=== PATIENT | female | born 1945 | race Caucasian/White ===

== ENCOUNTER 2019-07-22 15:19 | IRF | payer MEDICARE, BC, SELFPAY ==
[2019-07-22 15:47] VITALS: BP 113/53; PULSE 84; RESP 20; TEMP 36.2; O2SAT 100; BMI 23.6
[2019-07-22 17:26] LABS: Glucose Point of Care 120 (65-105)
[2019-07-22] MEDS: CYCLOBENZAPRINE HCL 10 MG TABLET PO (18:00)
--- NOTE | 2019-07-22 18:45 | PC.NURSE ---
Patient is alert and oriented to person only. unable to answer admission questions.
[2019-07-22] MEDS: HEPARIN SODIUM 5,000 UNITS/ML VIAL 5000 UNITS SUB-Q (21:48)
[2019-07-22] MEDS: ATORVASTATIN 40 MG TABLET 80 MG PO (21:48)
[2019-07-22 22:00] VITALS: BP 141/65; PULSE 56; RESP 18; TEMP 36.2; O2SAT 96
[2019-07-23] MEDS: ACETAMINOPHEN 500 MG TABLET PO (03:44)
[2019-07-23 05:10] LABS: Basophils Absolute Auto 0.1 K/mm3 (0.0-0.1); Basophils Percent Auto 0.7 % (0.2-1.2); Eosinophils Absolute Auto 0.1 K/mm3 (0-0.3); Eosinophils Percent Auto 1.3 % (0-4.4); Hematocrit 35.8 % (37.0-47.0); Hemoglobin 11.4 g/dL (12.0-15.0); Immature Granulocyte Absolute 0.06 K/mm3 (0.00-0.031); Immature Granulocyte Percent A 0.7 % (0-0.5); Lymphocytes Absolute Auto 2.86 K/mm3 (0.9-3.2); Lymphocytes Percent Auto 34.2 % (18.3-44.2); Mean Corpuscular HGB Conc 31.8 g/dl (32-36); Mean Corpuscular Hemoglobin 32.5 pg (26-34); Mean Platelet Volume 9.6 fl (7.4-10.4); Monocytes Absolute Auto 0.6 K/mm3 (0.1-0.6); Monocytes Percent Auto 6.6 % (2.6-8.5); Neutrophils Absolute Auto 4.7 K/mm3 (1.3-6.7); Neutrophils Percent Auto 56.5 % (45.5-73.1); Platelet Count Result 379 k/mm3 (150-375); Red Blood Count 3.51 M/mm3 (4.2-5.4); Red Cell Distribution Width 13.7 % (11.5-14.5); White Blood Count 8.4 K/mm3 (4.5-10.0)
[2019-07-23 05:28] LABS: Blood Urea Nitrogen 18 mg/dL (7-17); Carbon Dioxide 33 mmol/L (22-30); Chloride 103 mmol/L (98-107); Cholesterol 124 mg/dL (0-200); Estimated CRCL calculation 57 ml/min; Estimated Glomerular Filt Rate > 60; Glucose 88 mg/dL (65-105); HDL Direct 38 mg/dL; Potassium 3.8 mmol/L (3.4-5.0); Sodium 140 mmol/L (137-145); Triglycerides 94 mg/dL (<150)
[2019-07-23] MEDS: HEPARIN SODIUM 5,000 UNITS/ML VIAL 5000 UNITS SUB-Q ×3 (05:30→19:59)
[2019-07-23 05:38] LABS: LDL Cholesterol Direct 69 mg/dL
[2019-07-23 06:00] VITALS: BP 119/51; PULSE 56; RESP 19; TEMP 36; O2SAT 97
[2019-07-23] MEDS: LIDOCAINE 5% PATCH 2 PATCH TRANSDERM (07:59)
[2019-07-23] MEDS: BACLOFEN 10 MG TABLET 20 MG PO (07:59)
[2019-07-23] MEDS: POLYETHYLENE GLYCOL 3350 17 GM POWD.PACK PO (08:00)
[2019-07-23] MEDS: CLOPIDOGREL BISULFATE 75 MG TABLET PO (08:00)
[2019-07-23] MEDS: ASPIRIN 81 MG ENTERIC TABLET PO (08:01)
[2019-07-23] MEDS: lisinopriL 20 MG TABLET PO (08:01)
[2019-07-23] MEDS: CYCLOBENZAPRINE HCL 10 MG TABLET PO ×3 (08:01→17:04)
--- NOTE | 2019-07-23 10:30 | WPDREHABHP ---
H&P: HPI History of Present Illness Chief complaint: CVA Narrative: Kaila Avalos is a 74 year old female HISTORY OF PRESENT ILLNESS: The patient's primary rehab impairment category is stroke The etiologic diagnosis is left-sided ischemic stroke I saw this patient [id number] on July 23, 2019 at 10:15 a.m. The patient is a 74-year-old right-handed woman with a past medical history of left-sided ischemic stroke, hypertension, and hyperlipidemia was admitted to [facility] on July 12, 2019 with severe spinal stenosis to undergo a C2/T2 posterior instrumentation spinal fusion and a C4-C6 laminectomy / decompression. Postoperatively she has suffered a new left-sided ischemic stroke on July 15, 2019. On July 18, 2019 the patient underwent as cerebral angiogram aware is stent placement was not attempted due to risk. There were findings of critical stenosis greater than 95% through the carotid due to extensive atherosclerotic disease. Vascular surgery had previously evaluated the patient on June 24, 2019 and indicated no need for surgical intervention at this time. Vascular surgery has been reconsulted this visit. Carotid Dopplers were performed and demonstrated occlusion of the left internal carotid artery, however vascular recommended no acute intervention. Pain Service was consulted on July 21, 2019 for back spasms. The took patient to the operating room same day for bilateral erector spinae plain blocks. She tolerated the procedure well and in no acute distress and/or with May 01, 2020. Therapy was initiated at the acute care facility and the patient transferred to us from [facility] on July 22, 2019 on July 22, 2019 FALLS OR SURGERIES: The patient has had major surgeries in the 100 days prior to admission. They had falls in the past year. They had falls with injury in the past year. PAST MEDICAL HISTORY: arthritis bilateral hands and feet, atherosclerosis of coronary artery, atherosclerotic cardiac disease, claudications, hyperlipidemia, hypertension, peripheral vascular disease, snoring, stroke, memory loss, supraventricular tachycardia. PAST SURGICAL HISTORY: Appendectomy, cardiac catheterization, carpal tunnel surgery, cervical fusion, rotator cuff repair, cardiac stenting. SOCIAL HISTORY: Patient previously lived independently in a 1 level home with 3 steps to enter. She was completely dependent and driving prior and uses no assistive devices. She reported no falls but has had a major surgery this hospitalization. Her daughter was present for the interview and was moved in with the patient and will be available to assist the patient following inpatient rehabilitation if necessary. FAMILY HISTORY: Because of the aphasic defect and also memory loss patient is unable to offer any family history as best I could determine PRIOR LEVEL OF FUNCTION: Eating was INDEPENDENT Oral Care was INDEPENDENT Toileting Hygiene was INDEPENDENT Shower/Bathing was INDEPENDENT Upper Body Dressing was INDEPENDENT Lower Body Dressing was INDEPENDENT Donning/[place] Footwear was INDEPENDENT Rolling Left and Right was INDEPENDENT Sit to Lying was INDEPENDENT Lying to Sitting was INDEPENDENT Sit to Stand was INDEPENDENT Bed to Chair Transfers was INDEPENDENT Toilet Transfers was INDEPENDENT Walking was INDEPENDENT 75 feet with NO DEVICE Wheelchair Mobility was NOT APPLICABLE PRIOR TO ADMISSION Stairs were 2 status independent CURRENT LEVEL OF FUNCTION: Eating was independent Oral Care was partial/moderate assistance Toileting Hygiene was partial/moderate assistance Shower/Bathing was soft tension/maximal assistance Upper Body Dressing was substantial/maximal assistance Lower Body Dressing was substantial/maximal assistance Donning/[place] Footwear was substantial/maximal assist Rolling Left and Right was partial assistance Sit to Lying was par
--- NOTE | 2019-07-23 12:00 | PC.NURSE ---
[address]
[2019-07-23 14:00] VITALS: BP 123/60; PULSE 56; RESP 18; TEMP 36.1; O2SAT 95
[2019-07-23] MEDS: ATORVASTATIN 40 MG TABLET 80 MG PO (19:58)
[2019-07-23 22:00] VITALS: BP 106/60; PULSE 72; RESP 19; TEMP 36.4; O2SAT 96
[2019-07-24] MEDS: HEPARIN SODIUM 5,000 UNITS/ML VIAL 5000 UNITS SUB-Q ×3 (05:42→20:25)
[2019-07-24 06:00] VITALS: BP 132/52; PULSE 54; RESP 16; TEMP 36; O2SAT 92
[2019-07-24] MEDS: POLYETHYLENE GLYCOL 3350 17 GM POWD.PACK PO (08:46)
[2019-07-24] MEDS: lisinopriL 20 MG TABLET PO (08:46)
[2019-07-24] MEDS: CLOPIDOGREL BISULFATE 75 MG TABLET PO (08:46)
[2019-07-24] MEDS: ASPIRIN 81 MG ENTERIC TABLET PO (08:46)
[2019-07-24] MEDS: CYCLOBENZAPRINE HCL 10 MG TABLET PO ×3 (08:46→16:42)
[2019-07-24 08:51] VITALS: BP 122/67; PULSE 60
[2019-07-24] MEDS: BACLOFEN 10 MG TABLET 20 MG PO ×2 (10:17→18:21)
[2019-07-24] MEDS: LIDOCAINE 5% PATCH 2 PATCH TRANSDERM (10:21)
[2019-07-24] MEDS: BISACODYL 10 MG SUPPOSITORY RECTAL (13:10)
[2019-07-24 14:00] VITALS: BP 137/69; PULSE 54; RESP 18; TEMP 36.3; O2SAT 96
--- NOTE | 2019-07-24 17:56 | WPDNEURORHBP ---
Subjective Date/time seen: 07/24/19 17:56 Interval history: patient does have evidence of aphasia and right-sided hemiparesis along with the evidence of myelopathy however there is no worsening and there are knows new symptoms her pain from the cervical surgery is decently controlled and she is wearing the [place] collar and comfortable with it Review of Systems Review of Systems: All systems reviewed & are unremarkable except as noted in HPI and below Functional Status Ambulation Ability Ability to Ambulate 10 Feet: Minimum Assistance X 1 Ability to Ambulate 50 Feet With 2 Turns: Minimum Assistance X 1 Ambulation Assistive Devices: Walker, Wheeled Exam Const: General: comfortable and no acute distress HENMT: Other: normal Eyes: General: appearance normal, both eyes and all related structures Neck: Neck: no JVD Other: difficult to assess her neck while she is on my on [place] however seems to be comfortable Resp: Effort & Inspection: normal respiratory effort Auscultation: clear to auscultation bilaterally Cardio: Rate: regular rate Rhythm: regular rhythm GI: GI Palp: Yes soft Auscultation: normal bowel sounds Skin: General skin exam: normal color and no rashes or lesions noted Other: the incision from the surgery is clean and healthy Neuro: Other: aphasia and right-sided hemiparesis improving, the patient is satisfied with the care Objective Data Vital Signs Vital Signs: Vital Signs - 24 hr 07/23/19 22:00 07/24/19 06:00 07/24/19 08:51 Temperature 36.4 C L 36.0 C L Pulse Rate 72 54 L 60 Respiratory Rate 19 16 Blood Pressure 106/60 132/52 L 122/67 Pulse Oximetry 96 92 07/24/19 14:00 Temperature 36.3 C L Pulse Rate 54 L Respiratory Rate 18 Blood Pressure 137/69 Pulse Oximetry 96 Intake/Output Intake/Output: Intake & Output 07/21/19 07/22/19 07/23/19 07/24/19 23:59 23:59 23:59 23:59 Intake Total 240 220 200 Balance 240 220 200 Meds/Results Medications: Active Medications Generic Name Dose Route Start Last Admin Trade Name Freq PRN Reason Stop Dose Admin Acetaminophen 500 mg 07/22/19 16:32 07/23/19 03:44 Tylenol Tablet PO 500 mg Q4H PRN Administration Pain Rated 4-6 Alprazolam 0.5 mg 07/22/19 16:32 Xanax PO HS PRN Anxiety Aspirin 81 mg 07/23/19 09:00 07/24/19 08:46 Aspirin Ec PO 81 mg DAILY [facility] Administration Atorvastatin Calcium 80 mg 07/22/19 21:00 07/23/19 19:58 Lipitor PO 80 mg HS [facility] Administration Baclofen 20 mg 07/22/19 16:32 07/24/19 10:17 Lioresal Po PO 20 mg TID PRN Administration Muscle Spasm Bisacodyl 10 mg 07/22/19 16:32 07/24/19 13:10 Dulcolax Suppository RECTAL 10 mg DAILY PRN Administration Constipation Clopidogrel Bisulfate 75 mg 07/23/19 09:00 07/24/19 08:46 Plavix PO 75 mg DAILY [facility] Administration Cyclobenzaprine HCl 10 mg 07/22/19 17:00 07/24/19 16:42 Flexeril PO 10 mg TID [facility] Administration Heparin Sodium (Porcine) 5,000 units 07/22/19 22:00 07/24/19 13:06 Heparin Sodium SUB-Q 5,000 units Q8HR [facility] Administration Lidocaine 2 patch 07/23/19 09:00 07/24/19 10:21 Lidoderm TRANSDERM 2 patch DAILY [facility] Administration Lisinopril 20 mg 07/23/19 09:00 07/24/19 08:46 Prinivil PO 20 mg DAILY [facility] Administration Nitroglycerin 0.4 mg 07/24/19 06:20 Nitrostat Subl 0.4 Mg (1/150) SUBLINGUAL Q5MIN PRN Chest Pain Oxycodone/Acetaminophen 1 tablet 07/22/19 16:32 07/24/19 10:17 Percocet 5-325 Mg PO 1 tablet Q4H PRN Administration Pain Rated 7-10 Polyethylene Glycol 17 gm 07/23/19 09:00 07/24/19 08:46 Miralax PO 17 gm DAILY [facility] Administration Senna 187 mg 07/22/19 21:00 07/23/19 19:58 Senokot PO 187 mg HS [facility] Administration Senna 187 mg 07/23/19 09:00 07/24/19 08:46 Senokot PO 187 mg DAILY [facility] Administration Progress Note: A&P Assess
[2019-07-24] MEDS: ATORVASTATIN 40 MG TABLET 80 MG PO (20:25)
[2019-07-24 22:00] VITALS: BP 127/46; PULSE 54; RESP 18; TEMP 36; O2SAT 94
[2019-07-25 06:00] VITALS: BP 144/65; PULSE 55; RESP 16; TEMP 36.1; O2SAT 93
[2019-07-25] MEDS: HEPARIN SODIUM 5,000 UNITS/ML VIAL 5000 UNITS SUB-Q ×3 (06:06→21:19)
[2019-07-25] MEDS: lisinopriL 20 MG TABLET PO (08:55)
[2019-07-25] MEDS: LIDOCAINE 5% PATCH 2 PATCH TRANSDERM (08:55)
[2019-07-25] MEDS: ASPIRIN 81 MG ENTERIC TABLET PO (08:55)
[2019-07-25] MEDS: CLOPIDOGREL BISULFATE 75 MG TABLET PO (08:56)
[2019-07-25] MEDS: POLYETHYLENE GLYCOL 3350 17 GM POWD.PACK PO (08:56)
[2019-07-25] MEDS: CYCLOBENZAPRINE HCL 10 MG TABLET PO ×3 (08:56→17:19)
[2019-07-25] MEDS: ACETAMINOPHEN 500 MG TABLET PO (09:04)
[2019-07-25] MEDS: BACLOFEN 10 MG TABLET 20 MG PO (09:05)
[2019-07-25 14:00] VITALS: BP 131/59; PULSE 56; RESP 17; TEMP 36.2; O2SAT 97
[2019-07-25 14:13] VITALS: BMI 23.6
--- NOTE | 2019-07-25 14:48 | RPD ---
INDIVIDUALIZED PLAN OF CARE FOR Kaila Avalos Brief Synthesis of Pre-Admission Screen, Post-Admission Evaluation and Therapy Evaluations: The patient presents to rehab with left-sided ischemic stroke. Comorbidities include hypertension, status post laminectomy, decompression, and fusion, atrial fibrillation, coronary artery atherosclerosis, claudication, peripheral vascular disease, supraventricular tachycardia, back spasms, acute pain, cervical myelopathy. The patient needs physician monitoring and treatment of anemia, perioperative blood loss, monitoring for adverse reactions to new medications, monitoring of infection, and pain control. The patient requires nursing services for frequent neuro checks, anticoagulation therapy, medication management and education, pressure relief and skin care management, monitoring of labs, and fall/safety precautions. Deficits include:ADLs, Balance, Cognition, Endurance, Mobility, Pain Management, ROM, Safety, Speech, Strength, Transfers Environmental Aide/Case Management for: Discharge Planning and Patient/Family Counseling Physical Therapy: 5 days per week for 60 minutes. Treatments may include: Therapeutic Exercise, Gait Training, Neuromuscular Re-education, Transfer Training, Community Reintegration, Bed Mobility, Patient/Family Education, Wheelchair Mobility Group Therapy/Concurrent Therapy Rationales: -Improve attention span during functional activities in a distracted environment. -Enhance problem solving and/or adequate judgment skills during functional activities in a distracted environment. -Promote increased safety awareness in a distracted environment to reduce fall risk with functional tasks, transfers, and ambulation to allow a more safe, self-sufficient return to the home environment. -Improve dynamic balance skills to promote safety and independence with functional activities in a distracted environment for maximum gain. Occupational Therapy: 5 days per week for 60 minutes. Treatments may include: Therapeutic Exercise, Therapeutic Activity, Cognitive Training, Self-Care Transfer Training, Community Reintegration, Home Management, Patient/Family Education, Wheelchair Mobility Training, Energy Conservation Training Group Therapy/Concurrent Therapy Rationales: -Allow therapist to observe and teach generalization and carry-over of skills learned in individual therapy. -Enhance problem solving and sequencing skills during therapeutic activities in a distracted environment. -Promote increased safety awareness in a realistic setting to reduce fall risk with functional tasks due to visual and verbal distractions. -Increase functional level with ADLs, ADL transfers and use of adaptive equipment through therapeutic activities with others while promoting safety to allow a more safe, self-sufficient return home. Speech Therapy: 5 days per week for 60 minutes. Treatments may include: Dysphasia Therapy, Speech/Language/Communication Therapy, Cognitive Training, Patient/Family Education Group Therapy/Concurrent Therapy - Rationale: -Allow therapist to observe and teach generalization and carry-over of skills learned in individual therapy. -Improve comprehension skills with complex or abstract ideas through discussion in a realistic setting. -Enhance problem solving skills with complex issues during activities in a distracted environment. -Promote increased memory skills and concentration in a distracted environment for a safe transition home. -Improve attention and focus with language/communication skills in a realistic and supportive therapeutic setting. -Allow for practice of expression of basic needs and ideas through functional activities with others. Medical Prognosis: Good Anticipated Length of Stay: 14 days Rehab Goals: Eating Goal: 06-Independent Oral Hygiene Goal: 06-Independent Toileting Hygiene Goal: 06-Independent Shower/Bathe Self Goal: 03-Partial/Moderate Assistance Upper Body Dressing Goal: 03-Partial/Mo
[2019-07-25] MEDS: ATORVASTATIN 40 MG TABLET 80 MG PO (21:19)
[2019-07-25 22:00] VITALS: BP 141/54; PULSE 53; RESP 18; TEMP 36.3; O2SAT 97
[2019-07-26 05:58] VITALS: BP 138/58; PULSE 64; RESP 18; TEMP 36.2; O2SAT 98
[2019-07-26] MEDS: HEPARIN SODIUM 5,000 UNITS/ML VIAL 5000 UNITS SUB-Q ×3 (06:35→21:43)
[2019-07-26] MEDS: CLOPIDOGREL BISULFATE 75 MG TABLET PO (08:30)
[2019-07-26] MEDS: lisinopriL 20 MG TABLET PO (08:30)
[2019-07-26] MEDS: CYCLOBENZAPRINE HCL 10 MG TABLET PO ×3 (08:30→16:52)
[2019-07-26] MEDS: ASPIRIN 81 MG ENTERIC TABLET PO (08:30)
[2019-07-26] MEDS: POLYETHYLENE GLYCOL 3350 17 GM POWD.PACK PO (08:31)
[2019-07-26] MEDS: LIDOCAINE 5% PATCH 2 PATCH TRANSDERM (08:31)
--- NOTE | 2019-07-26 09:59 | PCPTNOTE ---
Kaila Avalos was evaluated for a [] wheeled walker on 07/26/2019 by this physical therapist. The [wheeled walker] will resolve patient's mobility limitations and will be used for ADL's within the home. Patient can safely use walker for ambulation and transfers and wheeled walker is required due to deficits with right hip strength, standing balance deficit and patient on cervical precautions and wearing cervical collar due to post-op cervical surgery.
--- NOTE | 2019-07-26 12:57 | WPDNEURORHBP ---
Subjective Date/time seen: 07/26/19 12:57 Interval history: patient this morning has had significant muscle spasms and yells and that if creases of pain in her neck the other issue obviously his her is speech defect related to the stroke and also not only the right-sided hemiparesis with evidence of myelopathy patient is afebrile and does not have any complains of chest pain shortness of breath headache nausea vomiting and fever Review of Systems Constitutional: Comments: complains of muscle spasm in the neck Eyes: Eyes: Reports no additional eye complaints ENT: Reports Normal hearing present Cardiovascular: Comments: no complaints Functional Status Ambulation Ability Ability to Ambulate 10 Feet: Minimum Assistance X 1 Ability to Ambulate 50 Feet With 2 Turns: Minimum Assistance X 1 Ambulation Assistive Devices: Walker, Wheeled Transfers Ability Ability to Transfer In/Out of Chair: Minimum Assistance X 1 Exam Const: General: no acute distress and uncomfortable Other: uncomfortable due to muscle spasm in her neck post cervical surgery HENMT: Other: normal Eyes: General: appearance normal, both eyes and all related structures Neck: Other: neck is in [place] J collar which she has to wear 02/02 Resp: Effort & Inspection: normal respiratory effort Auscultation: clear to auscultation bilaterally Cardio: Rate: regular rate Rhythm: regular rhythm GI: GI Palp: Yes Soft to palpation Auscultation: normal bowel sounds Skin: General skin exam: normal color and no rashes or lesions noted Neuro: Other: patient has aphasia and right-sided hemiparesis along with evidence of myelopathy with positive Babinski bilaterally related to cervical myelopathy the muscle spasm is hampering and we will address that with the medication patient was counseled Extrem: General: normal to inspection Objective Data Vital Signs Vital Signs: Vital Signs - 24 hr 07/25/19 14:00 07/25/19 22:00 07/26/19 05:58 Temperature 36.2 C L 36.3 C L 36.2 C L Pulse Rate 56 L 53 L 64 Respiratory Rate 17 18 18 Blood Pressure 131/59 L 141/54 H 138/58 L Pulse Oximetry 97 97 98 Intake/Output Intake/Output: Intake & Output 07/23/19 07/24/19 07/25/19 07/26/19 23:59 23:59 23:59 23:59 Intake Total 220 300 200 240 Balance 220 300 200 240 Meds/Results Medications: Active Medications Generic Name Dose Route Start Last Admin Trade Name Freq PRN Reason Stop Dose Admin Acetaminophen 500 mg 07/22/19 16:32 07/25/19 09:04 Tylenol Tablet PO 500 mg Q4H PRN Administration Pain Rated 4-6 Alprazolam 0.5 mg 07/22/19 16:32 Xanax PO HS PRN Anxiety Aspirin 81 mg 07/23/19 09:00 07/26/19 08:30 Aspirin Ec PO 81 mg DAILY [facility] Administration Atorvastatin Calcium 80 mg 07/22/19 21:00 07/25/19 21:19 Lipitor PO 80 mg HS [facility] Administration Baclofen 20 mg 07/22/19 16:32 07/25/19 09:05 Lioresal Po PO 20 mg TID PRN Administration Muscle Spasm Bisacodyl 10 mg 07/22/19 16:32 07/24/19 13:10 Dulcolax Suppository RECTAL 10 mg DAILY PRN Administration Constipation Clopidogrel Bisulfate 75 mg 07/23/19 09:00 07/26/19 08:30 Plavix PO 75 mg DAILY [facility] Administration Cyclobenzaprine HCl 10 mg 07/22/19 17:00 07/26/19 12:29 Flexeril PO 10 mg TID [facility] Administration Heparin Sodium (Porcine) 5,000 units 07/22/19 22:00 07/26/19 06:35 Heparin Sodium SUB-Q 5,000 units Q8HR [facility] Administration Lidocaine 2 patch 07/23/19 09:00 07/26/19 08:31 Lidoderm TRANSDERM 2 patch DAILY [facility] Administration Lisinopril 20 mg 07/23/19 09:00 07/26/19 08:30 Prinivil PO 20 mg DAILY [facility] Administration Nitroglycerin 0.4 mg 07/24/19 06:20 Nitrostat Subl 0.4 Mg (1/150) SUBLINGUAL Q5MIN PRN Chest Pain Oxycodone/Acetaminophen 1 tablet 07/25/19 14:00 07/26/19 06:35 Percocet 5-325 Mg PO 1 tablet Q8HR [facility] Administration Polyethyle
[2019-07-26 14:00] VITALS: BP 137/75; PULSE 64; RESP 18; TEMP 36.5; O2SAT 100
[2019-07-26] MEDS: ATORVASTATIN 40 MG TABLET 80 MG PO (21:42)
[2019-07-26 22:00] VITALS: BP 129/69; PULSE 64; RESP 18; TEMP 36.2; O2SAT 95
[2019-07-27] MEDS: HEPARIN SODIUM 5,000 UNITS/ML VIAL 5000 UNITS SUB-Q ×3 (05:54→21:46)
[2019-07-27 06:00] VITALS: BP 118/64; PULSE 70; RESP 18; TEMP 36.3; O2SAT 96
[2019-07-27] MEDS: LIDOCAINE 5% PATCH 2 PATCH TRANSDERM (10:10)
[2019-07-27] MEDS: CLOPIDOGREL BISULFATE 75 MG TABLET PO (10:10)
[2019-07-27] MEDS: lisinopriL 20 MG TABLET PO (10:10)
[2019-07-27] MEDS: ASPIRIN 81 MG ENTERIC TABLET PO (10:10)
[2019-07-27] MEDS: CYCLOBENZAPRINE HCL 10 MG TABLET PO ×3 (10:14→17:26)
--- NOTE | 2019-07-27 13:21 | WPDNEURORHBP ---
Subjective Date/time seen: 07/27/19 13:21 Interval history: patient continues to have some discomfort in her neck however it is better and the muscle spasms are better with the use of the muscle relaxers overall she is improving denies any headache chest pain shortness of breath Review of Systems Review of Systems: All systems reviewed & are unremarkable except as noted in HPI and below Functional Status Ambulation Ability Ability to Ambulate 10 Feet: Minimum Assistance X 1 Ability to Ambulate 50 Feet With 2 Turns: Minimum Assistance X 1 Ability to Ambulate 150 Feet: Minimum Assistance X 1 Ambulation Assistive Devices: Walker, Wheeled Transfers Ability Ability to Transfer In/Out of Chair: Contact Guard Exam Const: General: comfortable and no acute distress Eyes: General: appearance normal, both eyes and all related structures Neck: Other: B neck movements are restricted because of the [place] J collar Resp: Effort & Inspection: normal respiratory effort Auscultation: clear to auscultation bilaterally Cardio: Rate: regular rate Rhythm: regular rhythm GI: GI Palp: Yes Soft to palpation Auscultation: normal bowel sounds Back/Spine/Pelvis: Other: neck is in [place] J collar Skin: General skin exam: normal color and no rashes or lesions noted Neuro: Other: the strength in the lower extremities and upper extremities are improving and she is doing fairly well Objective Data Vital Signs Vital Signs: Vital Signs - 24 hr 07/26/19 14:00 07/26/19 22:00 07/27/19 06:00 Temperature 36.5 C 36.2 C L 36.3 C L Pulse Rate 64 64 70 Respiratory Rate 18 18 18 Blood Pressure 137/75 129/69 118/64 Pulse Oximetry 100 95 96 Intake/Output Intake/Output: Intake & Output 07/24/19 07/25/19 07/26/19 07/27/19 23:59 23:59 23:59 23:59 Intake Total 300 200 720 240 Balance 300 200 720 240 Meds/Results Medications: Active Medications Generic Name Dose Route Start Last Admin Trade Name Freq PRN Reason Stop Dose Admin Acetaminophen 500 mg 07/22/19 16:32 07/25/19 09:04 Tylenol Tablet PO 500 mg Q4H PRN Administration Pain Rated 4-6 Alprazolam 0.5 mg 07/22/19 16:32 Xanax PO HS PRN Anxiety Aspirin 81 mg 07/23/19 09:00 07/27/19 10:10 Aspirin Ec PO 81 mg DAILY [facility] Administration Atorvastatin Calcium 80 mg 07/22/19 21:00 07/26/19 21:42 Lipitor PO 80 mg HS [facility] Administration Baclofen 20 mg 07/22/19 16:32 07/25/19 09:05 Lioresal Po PO 20 mg TID PRN Administration Muscle Spasm Bisacodyl 10 mg 07/22/19 16:32 07/24/19 13:10 Dulcolax Suppository RECTAL 10 mg DAILY PRN Administration Constipation Clopidogrel Bisulfate 75 mg 07/23/19 09:00 07/27/19 10:10 Plavix PO 75 mg DAILY [facility] Administration Cyclobenzaprine HCl 10 mg 07/22/19 17:00 07/27/19 13:08 Flexeril PO 10 mg TID [facility] Administration Heparin Sodium (Porcine) 5,000 units 07/22/19 22:00 07/27/19 13:08 Heparin Sodium SUB-Q 5,000 units Q8HR [facility] Administration Lidocaine 2 patch 07/23/19 09:00 07/27/19 10:10 Lidoderm TRANSDERM 2 patch DAILY [facility] Administration Lisinopril 20 mg 07/23/19 09:00 07/27/19 10:10 Prinivil PO 20 mg DAILY [facility] Administration Nitroglycerin 0.4 mg 07/24/19 06:20 Nitrostat Subl 0.4 Mg (1/150) SUBLINGUAL Q5MIN PRN Chest Pain Oxycodone/Acetaminophen 1 tablet 07/25/19 14:00 07/27/19 13:08 Percocet 5-325 Mg PO 1 tablet Q8HR [facility] Administration Polyethylene Glycol 17 gm 07/23/19 09:00 07/27/19 10:11 Miralax PO Not Given DAILY [facility] Senna 187 mg 07/22/19 21:00 07/26/19 21:43 Senokot PO 187 mg HS [facility] Administration Senna 187 mg 07/23/19 09:00 07/27/19 10:11 Senokot PO 187 mg DAILY [facility] Administration Progress Note: A&P Assessment and Plan (1) Hypertension: Code(s): I10 - Essential (primary) hypertension Status: Acute (2) Memory loss:
[2019-07-27 14:00] VITALS: BP 139/63; PULSE 55; RESP 18; TEMP 36.2; O2SAT 96
[2019-07-27 21:23] VITALS: BP 123/56; PULSE 51; RESP 20; TEMP 36.1; O2SAT 95
[2019-07-27] MEDS: ATORVASTATIN 40 MG TABLET 80 MG PO (21:46)
[2019-07-28] MEDS: HEPARIN SODIUM 5,000 UNITS/ML VIAL 5000 UNITS SUB-Q ×3 (05:47→21:27)
[2019-07-28 06:00] VITALS: BP 134/55; PULSE 50; RESP 16; TEMP 36.1; O2SAT 97
[2019-07-28 08:00] VITALS: PULSE 50; RESP 16; O2SAT 97
[2019-07-28] MEDS: lisinopriL 20 MG TABLET PO (09:33)
[2019-07-28] MEDS: CYCLOBENZAPRINE HCL 10 MG TABLET PO ×3 (09:34→17:34)
[2019-07-28] MEDS: CLOPIDOGREL BISULFATE 75 MG TABLET PO (09:34)
[2019-07-28] MEDS: LIDOCAINE 5% PATCH 2 PATCH TRANSDERM (09:34)
[2019-07-28] MEDS: ASPIRIN 81 MG ENTERIC TABLET PO (09:34)
[2019-07-28] MEDS: POLYETHYLENE GLYCOL 3350 17 GM POWD.PACK PO (09:35)
--- NOTE | 2019-07-28 12:36 | WPDNEURORHBP ---
Subjective Date/time seen: 07/28/19 12:36 Interval history: patient's discomfort is much better her speech defect is better and right-sided weakness along with the evidence of myelopathy is getting better she is happy with the care she is receiving no headache nausea vomiting chest pain or shortness of breath Review of Systems Review of Systems: All systems reviewed & are unremarkable except as noted in HPI and below Functional Status Ambulation Ability Ability to Ambulate 10 Feet: Contact Guard Ability to Ambulate 50 Feet With 2 Turns: Contact Guard Ability to Ambulate 150 Feet: Contact Guard Ambulation Assistive Devices: Walker, Wheeled Transfers Ability Ability to Transfer In/Out of Chair: Standby Assistance Exam Const: General: comfortable and no acute distress Eyes: General: appearance normal, both eyes and all related structures Neck: Neck: supple and no JVD Resp: Effort & Inspection: normal respiratory effort Auscultation: clear to auscultation bilaterally Cardio: Rate: regular rate Rhythm: regular rhythm GI: GI Palp: Yes Soft to palpation Auscultation: normal bowel sounds Skin: General skin exam: normal color and no rashes or lesions noted Neuro: Other: improving speech defect right-sided weakness and myelopathy she is overall improving and comfortable with the medical management Extrem: General: normal to inspection Objective Data Vital Signs Vital Signs: Vital Signs - 24 hr 07/27/19 14:00 07/27/19 21:23 07/28/19 06:00 Temperature 36.2 C L 36.1 C L 36.1 C L Pulse Rate 55 L 51 L 50 L Respiratory Rate 18 20 16 Blood Pressure 139/63 123/56 L 134/55 L Pulse Oximetry 96 95 97 07/28/19 08:00 Temperature Pulse Rate 50 L Respiratory Rate 16 Blood Pressure Pulse Oximetry 97 Intake/Output Intake/Output: Intake & Output 07/25/19 07/26/19 07/27/19 07/28/19 23:59 23:59 23:59 23:59 Intake Total 200 720 340 240 Balance 200 720 340 240 Meds/Results Medications: Active Medications Generic Name Dose Route Start Last Admin Trade Name Freq PRN Reason Stop Dose Admin Acetaminophen 500 mg 07/22/19 16:32 07/25/19 09:04 Tylenol Tablet PO 500 mg Q4H PRN Administration Pain Rated 4-6 Alprazolam 0.5 mg 07/22/19 16:32 Xanax PO HS PRN Anxiety Aspirin 81 mg 07/23/19 09:00 07/28/19 09:34 Aspirin Ec PO 81 mg DAILY [facility] Administration Atorvastatin Calcium 80 mg 07/22/19 21:00 07/27/19 21:46 Lipitor PO 80 mg HS [facility] Administration Baclofen 20 mg 07/22/19 16:32 07/25/19 09:05 Lioresal Po PO 20 mg TID PRN Administration Muscle Spasm Bisacodyl 10 mg 07/22/19 16:32 07/24/19 13:10 Dulcolax Suppository RECTAL 10 mg DAILY PRN Administration Constipation Clopidogrel Bisulfate 75 mg 07/23/19 09:00 07/28/19 09:34 Plavix PO 75 mg DAILY [facility] Administration Cyclobenzaprine HCl 10 mg 07/22/19 17:00 07/28/19 09:34 Flexeril PO 10 mg TID [facility] Administration Heparin Sodium (Porcine) 5,000 units 07/22/19 22:00 07/28/19 05:47 Heparin Sodium SUB-Q 5,000 units Q8HR [facility] Administration Lidocaine 2 patch 07/23/19 09:00 07/28/19 09:34 Lidoderm TRANSDERM 2 patch DAILY [facility] Administration Lisinopril 20 mg 07/23/19 09:00 07/28/19 09:33 Prinivil PO 20 mg DAILY [facility] Administration Nitroglycerin 0.4 mg 07/24/19 06:20 Nitrostat Subl 0.4 Mg (1/150) SUBLINGUAL Q5MIN PRN Chest Pain Oxycodone/Acetaminophen 1 tablet 07/25/19 14:00 07/28/19 05:47 Percocet 5-325 Mg PO 1 tablet Q8HR [facility] Administration Polyethylene Glycol 17 gm 07/23/19 09:00 07/28/19 09:35 Miralax PO 17 gm DAILY [facility] Administration Senna 187 mg 07/22/19 21:00 07/27/19 21:46 Senokot PO 187 mg HS [facility] Administration Senna 187 mg 07/23/19 09:00 07/28/19 09:34 Senokot PO 187 mg DAILY [facility] Administration Progress Note: A&P Assessment and Plan (1) Athero
--- NOTE | 2019-07-28 13:11 | PCDIET ---
Nutrition Follow-Up Complete: Nutrition Diagnosis: Decreased sodium/fat needs related to cardiovascular disease as evidenced by CVA, heart healthy diet order. Nutrition Goals: Intakes >60%, completion of diet education Intake goal met. Average intake from 07/25/19 was 62% of meals. Patient now agreeable to try [employer]; recommend allowing prn upon patient request. Last recorded weight is 54.9 kg. Recommend obtaining new weight. Bowel Motility: hx constipation with need for laxative; no c/o by patient at this time. Labs Reviewed: No new labs available. Meds Noted: Dulcolax, Miralax, Senna Additional Notes: Neck incision well approximated. Skin otherwise intact. Will continue to monitor with same goals. Nutrition Monitoring and Evaluation: Follow up in 5 days.
[2019-07-28 14:00] VITALS: BP 119/51; PULSE 58; RESP 18; TEMP 36.6; O2SAT 98
[2019-07-28] MEDS: ATORVASTATIN 40 MG TABLET 80 MG PO (21:25)
[2019-07-28 22:00] VITALS: BP 141/61; PULSE 57; RESP 17; TEMP 36.7; O2SAT 96
[2019-07-29 06:00] VITALS: BP 133/52; PULSE 64; RESP 18; TEMP 36.4; O2SAT 100
[2019-07-29] MEDS: HEPARIN SODIUM 5,000 UNITS/ML VIAL 5000 UNITS SUB-Q ×3 (06:02→21:34)
[2019-07-29] MEDS: ASPIRIN 81 MG ENTERIC TABLET PO (08:22)
[2019-07-29] MEDS: lisinopriL 20 MG TABLET PO (08:22)
[2019-07-29] MEDS: CLOPIDOGREL BISULFATE 75 MG TABLET PO (08:22)
[2019-07-29] MEDS: POLYETHYLENE GLYCOL 3350 17 GM POWD.PACK PO (08:22)
[2019-07-29] MEDS: CYCLOBENZAPRINE HCL 10 MG TABLET PO ×3 (08:22→17:06)
[2019-07-29] MEDS: LIDOCAINE 5% PATCH 2 PATCH TRANSDERM (08:22)
--- NOTE | 2019-07-29 11:59 | WPDNEURORHBP ---
Subjective Date/time seen: 07/29/19 11:59 Interval history: patient is improving in her speech and also right-sided weakness but is concerned about the hard cervical collar she is wearing after having had the cervical surgery no headache nausea vomiting chest pain or shortness of breath Review of Systems Review of Systems: All systems reviewed & are unremarkable except as noted in HPI and below Functional Status Ambulation Ability Ability to Ambulate 10 Feet: Contact Guard Ability to Ambulate 50 Feet With 2 Turns: Contact Guard Ability to Ambulate 150 Feet: Contact Guard Ambulation Assistive Devices: Walker, Wheeled Transfers Ability Ability to Transfer In/Out of Chair: Standby Assistance Exam Const: General: comfortable and no acute distress Eyes: General: appearance normal, both eyes and all related structures Neck: Neck: no JVD Other: patient is wearing a [place] J collar and decreased range of movements of the neck which are stable Resp: Effort & Inspection: normal respiratory effort Auscultation: clear to auscultation bilaterally Cardio: Rate: regular rate Rhythm: regular rhythm GI: GI Palp: Yes Soft to palpation Auscultation: normal bowel sounds Skin: General skin exam: normal color and no rashes or lesions noted Neuro: Other: improving expressive aphasia and right-sided hemiparesis along with the evidence of myelopathy with paraparesis reflexes remain preserved in both upper lower extremity she still needs assistance with all the activities of daily living Extrem: General: normal to inspection Objective Data Vital Signs Vital Signs: Vital Signs - 24 hr 07/28/19 14:00 07/28/19 22:00 07/29/19 06:00 Temperature 36.6 C 36.7 C 36.4 C L Pulse Rate 58 L 57 L 64 Respiratory Rate 18 17 18 Blood Pressure 119/51 L 141/61 H 133/52 L Pulse Oximetry 98 96 100 Intake/Output Intake/Output: Intake & Output 07/26/19 07/27/19 07/28/19 07/29/19 23:59 23:59 23:59 23:59 Intake Total 720 340 840 240 Balance 720 340 840 240 Meds/Results Medications: Active Medications Generic Name Dose Route Start Last Admin Trade Name Freq PRN Reason Stop Dose Admin Acetaminophen 500 mg 07/22/19 16:32 07/25/19 09:04 Tylenol Tablet PO 500 mg Q4H PRN Administration Pain Rated 4-6 Alprazolam 0.5 mg 07/22/19 16:32 Xanax PO HS PRN Anxiety Aspirin 81 mg 07/23/19 09:00 07/29/19 08:22 Aspirin Ec PO 81 mg DAILY [facility] Administration Atorvastatin Calcium 80 mg 07/22/19 21:00 07/28/19 21:25 Lipitor PO 80 mg HS [facility] Administration Baclofen 20 mg 07/22/19 16:32 07/25/19 09:05 Lioresal Po PO 20 mg TID PRN Administration Muscle Spasm Bisacodyl 10 mg 07/22/19 16:32 07/24/19 13:10 Dulcolax Suppository RECTAL 10 mg DAILY PRN Administration Constipation Clopidogrel Bisulfate 75 mg 07/23/19 09:00 07/29/19 08:22 Plavix PO 75 mg DAILY [facility] Administration Cyclobenzaprine HCl 10 mg 07/22/19 17:00 07/29/19 08:22 Flexeril PO 10 mg TID [facility] Administration Heparin Sodium (Porcine) 5,000 units 07/22/19 22:00 07/29/19 06:02 Heparin Sodium SUB-Q 5,000 units Q8HR [facility] Administration Lidocaine 2 patch 07/23/19 09:00 07/29/19 08:22 Lidoderm TRANSDERM 2 patch DAILY [facility] Administration Lisinopril 20 mg 07/23/19 09:00 07/29/19 08:22 Prinivil PO 20 mg DAILY [facility] Administration Nitroglycerin 0.4 mg 07/24/19 06:20 Nitrostat Subl 0.4 Mg (1/150) SUBLINGUAL Q5MIN PRN Chest Pain Oxycodone/Acetaminophen 1 tablet 07/25/19 14:00 07/29/19 06:03 Percocet 5-325 Mg PO 1 tablet Q8HR [facility] Administration Polyethylene Glycol 17 gm 07/23/19 09:00 07/29/19 08:22 Miralax PO 17 gm DAILY [facility] Administration Senna 187 mg 07/22/19 21:00 07/28/19 21:26 Senokot PO 187 mg HS [facility] Administration Senna 187 mg 07/23/19 09:00 07/29/19 08:22 Senokot PO 187 mg DAILY [facility] Admin
[2019-07-29 14:00] VITALS: BP 126/56; PULSE 56; RESP 18; TEMP 36.6; O2SAT 97
[2019-07-29] MEDS: ATORVASTATIN 40 MG TABLET 80 MG PO (21:31)
[2019-07-29 22:00] VITALS: BP 115/49; PULSE 56; RESP 18; TEMP 36.2; O2SAT 97
[2019-07-30 04:49] LABS: Basophils Percent Auto 0.6 % (0.2-1.2); Eosinophils Absolute Auto 0.2 K/mm3 (0-0.3); Eosinophils Percent Auto 3.4 % (0-4.4); Hematocrit 35.6 % (37.0-47.0); Hemoglobin 11.3 g/dL (12.0-15.0); Immature Granulocyte Absolute 0.01 K/mm3 (0.00-0.031); Immature Granulocyte Percent A 0.2 % (0-0.5); Lymphocytes Absolute Auto 1.98 K/mm3 (0.9-3.2); Mean Corpuscular HGB Conc 31.7 g/dl (32-36); Mean Corpuscular Hemoglobin 32.6 pg (26-34); Mean Corpuscular Volume 102.6 fl (80-100); Mean Platelet Volume 9.9 fl (7.4-10.4); Monocytes Absolute Auto 0.5 K/mm3 (0.1-0.6); Monocytes Percent Auto 8.5 % (2.6-8.5); Neutrophils Absolute Auto 3.6 K/mm3 (1.3-6.7); Neutrophils Percent Auto 56.3 % (45.5-73.1); Platelet Count Result 440 k/mm3 (150-375); Red Blood Count 3.47 M/mm3 (4.2-5.4); Red Cell Distribution Width 13.8 % (11.5-14.5); White Blood Count 6.4 K/mm3 (4.5-10.0)
[2019-07-30 05:17] LABS: Blood Urea Nitrogen 13 mg/dL (7-17); Carbon Dioxide 28 mmol/L (22-30); Chloride 104 mmol/L (98-107); Estimated CRCL calculation 49 ml/min; Estimated Glomerular Filt Rate > 60; Glucose 83 mg/dL (65-105); Potassium 3.9 mmol/L (3.4-5.0); Sodium 139 mmol/L (137-145)
[2019-07-30 06:00] VITALS: BP 110/56; PULSE 62; RESP 18; TEMP 36.2; O2SAT 98
[2019-07-30] MEDS: HEPARIN SODIUM 5,000 UNITS/ML VIAL 5000 UNITS SUB-Q (06:03)
[2019-07-30] MEDS: LIDOCAINE 5% PATCH 2 PATCH TRANSDERM (08:28)
[2019-07-30] MEDS: lisinopriL 20 MG TABLET PO (08:29)
[2019-07-30] MEDS: CLOPIDOGREL BISULFATE 75 MG TABLET PO (08:29)
[2019-07-30] MEDS: ASPIRIN 81 MG ENTERIC TABLET PO (08:29)
[2019-07-30] MEDS: CYCLOBENZAPRINE HCL 10 MG TABLET PO ×3 (08:30→17:35)
[2019-07-30 14:00] VITALS: BP 132/61; PULSE 65; RESP 18; TEMP 36.3; O2SAT 97
[2019-07-30] MEDS: ATORVASTATIN 40 MG TABLET 80 MG PO (21:22)
[2019-07-30 22:00] VITALS: BP 108/55; PULSE 65; RESP 18; TEMP 36.3; O2SAT 96
[2019-07-31 06:00] VITALS: BP 127/57; PULSE 52; RESP 18; TEMP 36.3; O2SAT 95
[2019-07-31 09:15] VITALS: BP 122/83; PULSE 64
[2019-07-31] MEDS: lisinopriL 20 MG TABLET PO (09:16)
[2019-07-31] MEDS: CLOPIDOGREL BISULFATE 75 MG TABLET PO (09:16)
[2019-07-31] MEDS: ASPIRIN 81 MG ENTERIC TABLET PO (09:17)
[2019-07-31 09:23] VITALS: BP 122/83; PULSE 64
--- NOTE | 2019-07-31 12:08 | WPDNEURORHBP ---
Subjective Date/time seen: 07/31/19 12:08 continues to improve still concerned about cervical collar Functional Status Ambulation Ability Ability to Ambulate 10 Feet: Standby Assistance Ability to Ambulate 50 Feet With 2 Turns: Standby Assistance Ability to Ambulate 150 Feet: Standby Assistance Ambulation Assistive Devices: Walker, Wheeled Transfers Ability Ability to Transfer In/Out of Chair: Standby Assistance Exam Const: General: cooperative, comfortable and no acute distress Orientation/consciousness: patient oriented x3 Neck: Neck: other (on [place] j collar) Resp: Auscultation: clear to auscultation bilaterally Cardio: Rate: regular rate Rhythm: regular rhythm GI: Auscultation: normal bowel sounds Neuro: General: patient oriented x3, moves all extremities and no focal motor deficits (right hemiparesis and paraparesis) Deep tendon reflexes (DTR's): Right triceps reflex intensity grade: 2+, Rt Biceps (C5, C6): 2+, Left biceps reflex intensity grade: 1+, Right brachioradialis reflex intensity grade: 2+, Left brachioradialis reflex intensity grade: 1+, Right patellar reflex intensity grade: 2+, Left patellar reflex intensity grade: 2+, Right ankle reflex intensity grade: 2+ and Left ankle reflex intensity grade: 2+ Objective Data Vital Signs Vital Signs: Vital Signs - 24 hr 07/30/19 14:00 07/30/19 22:00 07/31/19 06:00 Temperature 36.3 C L 36.3 C L 36.3 C L Pulse Rate 65 65 52 L Respiratory Rate 18 18 18 Blood Pressure 132/61 108/55 L 127/57 L Pulse Oximetry 97 96 95 07/31/19 09:15 07/31/19 09:23 Temperature Pulse Rate 64 64 Respiratory Rate Blood Pressure 122/83 122/83 Pulse Oximetry Intake/Output Intake/Output: Intake & Output 07/28/19 07/29/19 07/30/19 07/31/19 23:59 23:59 23:59 23:59 Intake Total 840 720 700 120 Balance 840 720 700 120 Meds/Results Medications: Active Medications Generic Name Dose Route Start Last Admin Trade Name Freq PRN Reason Stop Dose Admin Acetaminophen 500 mg 07/22/19 16:32 07/25/19 09:04 Tylenol Tablet PO 500 mg Q4H PRN Administration Pain Rated 4-6 Alprazolam 0.5 mg 07/22/19 16:32 Xanax PO HS PRN Anxiety Aspirin 81 mg 07/23/19 09:00 07/31/19 09:17 Aspirin Ec PO 81 mg DAILY [facility] Administration Atorvastatin Calcium 80 mg 07/22/19 21:00 07/30/19 21:22 Lipitor PO 80 mg HS [facility] Administration Baclofen 20 mg 07/22/19 16:32 07/25/19 09:05 Lioresal Po PO 20 mg TID PRN Administration Muscle Spasm Bisacodyl 10 mg 07/22/19 16:32 07/24/19 13:10 Dulcolax Suppository RECTAL 10 mg DAILY [facility] Administration Constipation Clopidogrel Bisulfate 75 mg 07/23/19 09:00 07/31/19 09:16 Plavix PO 75 mg DAILY [facility] Administration Cyclobenzaprine HCl 10 mg 07/22/19 17:00 07/31/19 10:55 Flexeril PO Not Given TID [facility] Lidocaine 2 patch 07/23/19 09:00 07/31/19 10:57 Lidoderm TRANSDERM Not Given DAILY [facility] Lisinopril 20 mg 07/23/19 09:00 07/31/19 09:16 Prinivil PO 20 mg DAILY [facility] Administration Nitroglycerin 0.4 mg 07/24/19 06:20 Nitrostat Subl 0.4 Mg (1/150) SUBLINGUAL Q5MIN PRN Chest Pain Oxycodone/Acetaminophen 1 tablet 07/25/19 14:00 07/31/19 06:05 Percocet 5-325 Mg PO 1 tablet Q8HR [facility] Administration Polyethylene Glycol 17 gm 07/23/19 09:00 07/30/19 08:30 Miralax PO Not Given DAILY [facility] Senna 187 mg 07/22/19 21:00 07/30/19 21:21 Senokot PO 187 mg HS [facility] Administration Senna 187 mg 07/23/19 09:00 07/30/19 08:29 Senokot PO 187 mg DAILY [facility] Administration Progress Note: A&P Assessment and Plan (1) Atherosclerotic heart disease: Code(s): I25.10 - Atherosclerotic heart disease of [place] coronary artery without angina pectoris Status: Acute (2) Hypertension: Code(s): I10 - Essential (primary) hypertension Status: Acute (3) Memory loss: Co
[2019-07-31 14:00] VITALS: BP 141/56; PULSE 58; RESP 16; TEMP 36.4; O2SAT 96
[2019-07-31] MEDS: ATORVASTATIN 40 MG TABLET 80 MG PO (21:14)
[2019-07-31 21:19] VITALS: BP 132/63; PULSE 55; RESP 16; TEMP 36.6; O2SAT 95
[2019-08-01 06:00] VITALS: BP 139/67; PULSE 55; RESP 16; TEMP 36.4; O2SAT 96
[2019-08-01] MEDS: ASPIRIN 81 MG ENTERIC TABLET PO (10:14)
[2019-08-01] MEDS: lisinopriL 20 MG TABLET PO (10:15)
[2019-08-01] MEDS: CLOPIDOGREL BISULFATE 75 MG TABLET PO (10:15)
[2019-08-01] MEDS: POLYETHYLENE GLYCOL 3350 17 GM POWD.PACK PO (10:15)
[2019-08-01 14:00] VITALS: BP 107/61; PULSE 62; RESP 16; TEMP 36.3; O2SAT 98
[2019-08-01] MEDS: ATORVASTATIN 40 MG TABLET 80 MG PO (21:05)
[2019-08-01 21:49] VITALS: BP 156/63; PULSE 58; RESP 20; TEMP 36.3; O2SAT 97
[2019-08-02 06:00] VITALS: BP 116/78; PULSE 65; RESP 20; TEMP 36.2; O2SAT 97
[2019-08-02] MEDS: ASPIRIN 81 MG ENTERIC TABLET PO (09:22)
[2019-08-02] MEDS: lisinopriL 20 MG TABLET PO (09:23)
[2019-08-02] MEDS: CLOPIDOGREL BISULFATE 75 MG TABLET PO (09:23)
--- NOTE | 2019-08-02 13:08 | WPDNEURORHBP ---
Subjective Date/time seen: 08/02/19 13:08 Interval history: patient seems to be impulsive which is probably her premorbid condition. She was present for the team conference with the daughter on telephone line she denies any headache nausea vomiting chest pain adnrews shortness of breath. She is improving quite well wearing them [place] J collar family training will be needed to help her with [place] J collar Review of Systems Review of Systems: All systems reviewed & are unremarkable except as noted in HPI and below Functional Status Ambulation Ability Ability to Ambulate 10 Feet: Independent Ability to Ambulate 50 Feet With 2 Turns: Independent Ability to Ambulate 150 Feet: Independent Ambulation Assistive Devices: Walker, Wheeled Transfers Ability Ability to Transfer In/Out of Chair: Independent Exam Const: General: comfortable and no acute distress HENMT: Other: normal exam Eyes: General: appearance normal, both eyes and all related structures Neck: Neck: supple and no JVD Resp: Effort & Inspection: normal respiratory effort Auscultation: clear to auscultation bilaterally Cardio: Rate: regular rate Rhythm: regular rhythm GI: GI Palp: Yes Soft to palpation Auscultation: normal bowel sounds Skin: General skin exam: normal color and no rashes or lesions noted Neuro: Other: patient's overall physical status is improving the hemiparesis is improving and also evidence of myelopathy is improving she is little hesitant to go home by herself and will family need training Extrem: General: normal to inspection Objective Data Vital Signs Vital Signs: Vital Signs - 24 hr 08/01/19 14:00 08/01/19 21:49 08/02/19 06:00 Temperature 36.3 C L 36.3 C L 36.2 C L Pulse Rate 62 58 L 65 Respiratory Rate 16 20 20 Blood Pressure 107/61 156/63 H 116/78 Pulse Oximetry 98 97 97 Intake/Output Intake/Output: Intake & Output 07/30/19 07/31/19 08/01/19 08/02/19 23:59 23:59 23:59 23:59 Intake Total 700 240 840 240 Balance 700 240 840 240 Meds/Results Medications: Active Medications Generic Name Dose Route Start Last Admin Trade Name Freq PRN Reason Stop Dose Admin Acetaminophen 500 mg 07/22/19 16:32 07/25/19 09:04 Tylenol Tablet PO 500 mg Q4H PRN Administration Pain Rated 4-6 Alprazolam 0.5 mg 07/22/19 16:32 Xanax PO HS PRN Anxiety Aspirin 81 mg 07/23/19 09:00 08/02/19 09:22 Aspirin Ec PO 81 mg DAILY [facility] Administration Atorvastatin Calcium 80 mg 07/22/19 21:00 08/01/19 21:05 Lipitor PO 80 mg HS [facility] Administration Baclofen 20 mg 07/22/19 16:32 07/25/19 09:05 Lioresal Po PO 20 mg TID PRN Administration Muscle Spasm Bisacodyl 10 mg 07/22/19 16:32 07/24/19 13:10 Dulcolax Suppository RECTAL 10 mg DAILY [facility] Administration Constipation Clopidogrel Bisulfate 75 mg 07/23/19 09:00 08/02/19 09:23 Plavix PO 75 mg DAILY [facility] Administration Cyclobenzaprine HCl 10 mg 07/31/19 12:29 Flexeril PO TID PRN muscle spasms Lidocaine 2 patch 07/31/19 13:15 Lidoderm TRANSDERM DAILY PRN Pain Lisinopril 20 mg 07/23/19 09:00 08/02/19 09:23 Prinivil PO 20 mg DAILY [facility] Administration Nitroglycerin 0.4 mg 07/24/19 06:20 Nitrostat Subl 0.4 Mg (1/150) SUBLINGUAL Q5MIN PRN Chest Pain Oxycodone/Acetaminophen 1 tablet 07/31/19 19:04 Percocet 5-325 Mg PO Q8HR PRN Pain Rated 6 or Greater Polyethylene Glycol 17 gm 07/23/19 09:00 08/02/19 09:21 Miralax PO Not Given DAILY [facility] Senna 187 mg 07/23/19 09:00 08/02/19 09:23 Senokot PO 187 mg DAILY [facility] Administration Progress Note: A&P Assessment and Plan (1) Atherosclerotic heart disease: Code(s): I25.10 - Atherosclerotic heart disease of [place] coronary artery without angina pectoris Status: Acute (2) Hypertension: Code(s): I10 - Essential (primary) hypertension S
[2019-08-02 14:00] VITALS: BP 102/67; PULSE 76; RESP 16; TEMP 36.2; O2SAT 98
--- NOTE | 2019-08-02 14:13 | PCDIET ---
Nutrition Follow-Up Complete: Nutrition Diagnosis: Decreased sodium/fat needs related to cardiovascular disease as evidenced by CVA, heart healthy diet order. Nutrition Goals: Intakes >60%, completion of diet education Goals met. Intakes 75-100% of most meals on heart healthy diet which is appropriate. Patient also has order for [employer] prn. Stroke prevention education provided this date. Patient does not have risk factors of diabetes or obesity, so discussed heart healthy diet plan. Last recorded weight is 54.9 kg. Recommend obtaining new weight. Bowel Motility: Last documented bowel movement 07/31/19. Labs Reviewed: Cr (0.60) Meds Noted: Miralax, Senna Additional Notes: Posterior neck incision well approximated. No documented pressure sores.Will continue to monitor with same goal of intakes >60%. Nutrition Monitoring and Evaluation: Follow up in 7 days.
[2019-08-02] MEDS: ATORVASTATIN 40 MG TABLET 80 MG PO (20:45)
[2019-08-02 21:18] VITALS: BP 110/70; PULSE 58; RESP 18; TEMP 36.4; O2SAT 98
[2019-08-03 06:00] VITALS: BP 139/65; PULSE 62; RESP 18; TEMP 36.1; O2SAT 99
[2019-08-03] MEDS: ASPIRIN 81 MG ENTERIC TABLET PO (08:27)
[2019-08-03] MEDS: CLOPIDOGREL BISULFATE 75 MG TABLET PO (08:27)
[2019-08-03] MEDS: lisinopriL 20 MG TABLET PO (08:27)
--- NOTE | 2019-08-03 13:48 | WPDNEURORHBP ---
Subjective Date/time seen: 08/03/19 13:48 Interval history: patient's speech is improving however she does still have hesitant speech and have trouble repetition and at times unable to bring out the correct words however is worth mentioning that this pattern has significantly improved from the time she came to us her right-sided weakness is also improving including the lower extremity weakness related to cervical myelopathy she is wearing the [place] collar Review of Systems Review of Systems: All systems reviewed & are unremarkable except as noted in HPI and below Functional Status Ambulation Ability Ability to Ambulate 10 Feet: Independent Ability to Ambulate 50 Feet With 2 Turns: Independent Ability to Ambulate 150 Feet: Independent Ambulation Assistive Devices: Walker, Wheeled Transfers Ability Ability to Transfer In/Out of Chair: Standby Assistance Exam Const: General: comfortable and no acute distress HENMT: General nose exam: Normal nares present Mouth: Yes moist mucous membranes Eyes: General: appearance normal, both eyes and all related structures Neck: Neck: supple and no JVD Resp: Effort & Inspection: normal respiratory effort Auscultation: clear to auscultation bilaterally Cardio: Rate: regular rate Rhythm: regular rhythm GI: GI Palp: Yes Soft to palpation Auscultation: normal bowel sounds Skin: General skin exam: normal color and no rashes or lesions noted Neuro: Other: improving speech and neurological dysfunction particularly the lower extremity weakness has improved and likewise the right-sided weakness also patient is happy with the care she is receiving Extrem: General: normal to inspection Objective Data Vital Signs Vital Signs: Vital Signs - 24 hr 08/02/19 14:00 08/02/19 21:18 08/03/19 06:00 Temperature 36.2 C L 36.4 C 36.1 C L Pulse Rate 76 58 L 62 Respiratory Rate 16 18 18 Blood Pressure 102/67 110/70 139/65 Pulse Oximetry 98 98 99 Intake/Output Intake/Output: Intake & Output 07/31/19 08/01/19 08/02/19 08/03/19 23:59 23:59 23:59 23:59 Intake Total 240 840 720 480 Balance 240 840 720 480 Meds/Results Medications: Active Medications Generic Name Dose Route Start Last Admin Trade Name Freq PRN Reason Stop Dose Admin Acetaminophen 500 mg 07/22/19 16:32 07/25/19 09:04 Tylenol Tablet PO 500 mg Q4H PRN Administration Pain Rated 4-6 Alprazolam 0.5 mg 07/22/19 16:32 Xanax PO HS PRN Anxiety Aspirin 81 mg 07/23/19 09:00 08/03/19 08:27 Aspirin Ec PO 81 mg DAILY [facility] Administration Atorvastatin Calcium 80 mg 07/22/19 21:00 08/02/19 20:45 Lipitor PO 80 mg HS [facility] Administration Baclofen 20 mg 07/22/19 16:32 07/25/19 09:05 Lioresal Po PO 20 mg TID PRN Administration Muscle Spasm Bisacodyl 10 mg 07/22/19 16:32 07/24/19 13:10 Dulcolax Suppository RECTAL 10 mg DAILY [facility] Administration Constipation Clopidogrel Bisulfate 75 mg 07/23/19 09:00 08/03/19 08:27 Plavix PO 75 mg DAILY [facility] Administration Cyclobenzaprine HCl 10 mg 07/31/19 12:29 Flexeril PO TID PRN muscle spasms Lidocaine 2 patch 07/31/19 13:15 Lidoderm TRANSDERM DAILY PRN Pain Lisinopril 20 mg 07/23/19 09:00 08/03/19 08:27 Prinivil PO 20 mg DAILY [facility] Administration Nitroglycerin 0.4 mg 07/24/19 06:20 Nitrostat Subl 0.4 Mg (1/150) SUBLINGUAL Q5MIN PRN Chest Pain Oxycodone/Acetaminophen 1 tablet 07/31/19 19:04 Percocet 5-325 Mg PO Q8HR PRN Pain Rated 6 or Greater Polyethylene Glycol 17 gm 07/23/19 09:00 08/03/19 08:27 Miralax PO Not Given DAILY [facility] Senna 187 mg 07/23/19 09:00 08/03/19 08:27 Senokot PO 187 mg DAILY [facility] Administration Progress Note: A&P Assessment and Plan (1) Atherosclerotic heart disease: Code(s): I25.10 - Atherosclerotic heart disease of [place] coronary artery without angina pectori
[2019-08-03 14:00] VITALS: BP 118/72; PULSE 64; RESP 18; TEMP 36.6; O2SAT 98
[2019-08-03] MEDS: ATORVASTATIN 40 MG TABLET 80 MG PO (20:17)
[2019-08-03 22:00] VITALS: BP 130/81; PULSE 61; RESP 18; TEMP 36.4; O2SAT 99
[2019-08-04 06:00] VITALS: BP 126/76; PULSE 68; RESP 18; TEMP 36.6; O2SAT 100
[2019-08-04] MEDS: lisinopriL 20 MG TABLET PO (08:19)
[2019-08-04] MEDS: ASPIRIN 81 MG ENTERIC TABLET PO (08:19)
[2019-08-04] MEDS: CLOPIDOGREL BISULFATE 75 MG TABLET PO (08:19)
--- NOTE | 2019-08-04 12:03 | WPDNEURORHBP ---
Subjective Date/time seen: 08/04/19 12:03 Interval history: patient has done remarkably well in over rehab strength has improve the gait has improved and she is able to perform the activities of daily living which better she is wearing her cervical collar quite well and able to tolerate it, no headache chest pain shortness of breath vomiting etc patient is eager to go tomorrow with home health Functional Status Ambulation Ability Ability to Ambulate 10 Feet: Independent Ability to Ambulate 50 Feet With 2 Turns: Independent Ability to Ambulate 150 Feet: Independent Ambulation Assistive Devices: Walker, Wheeled Transfers Ability Ability to Transfer In/Out of Chair: Independent Exam Const: General: comfortable and no acute distress HENMT: General nose exam: Normal nares present Mouth: Yes moist mucous membranes Eyes: General: appearance normal, both eyes and all related structures Neck: Neck: no JVD Other: patient is wearing the cervical collar and tolerating quite well Resp: Effort & Inspection: normal respiratory effort Auscultation: clear to auscultation bilaterally Cardio: Rate: regular rate Rhythm: regular rhythm GI: GI Palp: Yes Soft to palpation Auscultation: normal bowel sounds Skin: General skin exam: normal color and no rashes or lesions noted Neuro: Other: patient's mental status is fairly decent and normal likewise the renal exam shows normal strength in both upper lower extremity has improved to a significant degree while she was here on the rehab Extrem: General: normal to inspection Objective Data Vital Signs Vital Signs: Vital Signs - 24 hr 08/03/19 14:00 08/03/19 22:00 08/04/19 06:00 Temperature 36.6 C 36.4 C 36.6 C Pulse Rate 64 61 68 Respiratory Rate 18 18 18 Blood Pressure 118/72 130/81 126/76 Pulse Oximetry 98 99 100 Intake/Output Intake/Output: Intake & Output 08/01/19 08/02/19 08/03/19 08/04/19 23:59 23:59 23:59 23:59 Intake Total 840 720 720 240 Balance 840 720 720 240 Meds/Results Medications: Active Medications Generic Name Dose Route Start Last Admin Trade Name Freq PRN Reason Stop Dose Admin Acetaminophen 500 mg 07/22/19 16:32 07/25/19 09:04 Tylenol Tablet PO 500 mg Q4H PRN Administration Pain Rated 4-6 Alprazolam 0.5 mg 07/22/19 16:32 Xanax PO HS PRN Anxiety Aspirin 81 mg 07/23/19 09:00 08/04/19 08:19 Aspirin Ec PO 81 mg DAILY [facility] Administration Atorvastatin Calcium 80 mg 07/22/19 21:00 08/03/19 20:17 Lipitor PO 80 mg HS [facility] Administration Baclofen 20 mg 07/22/19 16:32 07/25/19 09:05 Lioresal Po PO 20 mg TID PRN Administration Muscle Spasm Bisacodyl 10 mg 07/22/19 16:32 07/24/19 13:10 Dulcolax Suppository RECTAL 10 mg DAILY [facility] Administration Constipation Clopidogrel Bisulfate 75 mg 07/23/19 09:00 08/04/19 08:19 Plavix PO 75 mg DAILY [facility] Administration Cyclobenzaprine HCl 10 mg 07/31/19 12:29 Flexeril PO TID PRN muscle spasms Lidocaine 2 patch 07/31/19 13:15 Lidoderm TRANSDERM DAILY [facility]N Pain Lisinopril 20 mg 07/23/19 09:00 08/04/19 08:19 Prinivil PO 20 mg DAILY [facility] Administration Nitroglycerin 0.4 mg 07/24/19 06:20 Nitrostat Subl 0.4 Mg (1/150) SUBLINGUAL Q5MIN PRN Chest Pain Oxycodone/Acetaminophen 1 tablet 07/31/19 19:04 Percocet 5-325 Mg PO Q8HR PRN Pain Rated 6 or Greater Polyethylene Glycol 17 gm 08/04/19 07:25 Miralax PO PRN PRN Constipation Senna 187 mg 07/23/19 09:00 08/04/19 08:19 Senokot PO 187 mg DAILY [facility] Administration Progress Note: A&P Assessment and Plan (1) Atherosclerotic heart disease: Code(s): I25.10 - Atherosclerotic heart disease of [place] coronary artery without angina pectoris Status: Acute (2) Hypertension: Code(s): I10 - Essential (primary) hypertension Status: Acute (3) Memory
[2019-08-04 14:00] VITALS: BP 128/72; PULSE 74; RESP 18; TEMP 36.6; O2SAT 96
[2019-08-04] MEDS: ATORVASTATIN 40 MG TABLET 80 MG PO (20:31)
[2019-08-04] MEDS: MELATONIN 3 MG TABLET PO (21:11)
[2019-08-04 22:00] VITALS: BP 116/46; PULSE 62; RESP 18; TEMP 36.5; O2SAT 97
[2019-08-05 06:00] VITALS: BP 142/59; PULSE 79; RESP 16; TEMP 37; O2SAT 98
[2019-08-05] MEDS: ASPIRIN 81 MG ENTERIC TABLET PO (09:52)
[2019-08-05] MEDS: CLOPIDOGREL BISULFATE 75 MG TABLET PO (09:52)
[2019-08-05] MEDS: lisinopriL 20 MG TABLET PO (09:52)
--- NOTE | 2019-08-05 12:05 | WPDNEURORHBP ---
Subjective Date/time seen: 08/05/19 12:05 Interval history: patient has done remarkably well her speech almost getting back to normal and the right-sided hemiparesis and paraparesis has significantly improved she is quite eager to be discharged today denies any headache nausea vomiting chest pain or shortness of breath Review of Systems Review of Systems: All systems reviewed & are unremarkable except as noted in HPI and below Functional Status Ambulation Ability Ability to Ambulate 10 Feet: Independent Ability to Ambulate 50 Feet With 2 Turns: Independent Ability to Ambulate 150 Feet: Independent Ambulation Assistive Devices: Walker, Wheeled Transfers Ability Ability to Transfer In/Out of Chair: Independent Exam Const: General: comfortable and no acute distress HENMT: General nose exam: Normal nares present Mouth: Yes moist mucous membranes Eyes: General: appearance normal, both eyes and all related structures Neck: Neck: no JVD Other: patient is wearing a cervical collar and comfortable with it will have a follow-up with Neurosurgery Resp: Effort & Inspection: normal respiratory effort Auscultation: clear to auscultation bilaterally Cardio: Rate: regular rate Rhythm: regular rhythm GI: GI Palp: Yes Soft to palpation Auscultation: normal bowel sounds Skin: General skin exam: normal color and no rashes or lesions noted Neuro: Other: significantly improved speech with occasional hesitancy and trouble expressing in finding correct words Likewise significantly improved right-sided weakness and also lower extremity weakness related to combined FX of cervical myelopathy and also stroke Extrem: General: normal to inspection Objective Data Vital Signs Vital Signs: Vital Signs - 24 hr 08/04/19 14:00 08/04/19 22:00 08/05/19 06:00 Temperature 36.6 C 36.5 C 37.0 C Pulse Rate 74 62 79 Respiratory Rate 18 18 16 Blood Pressure 128/72 116/46 L 142/59 H Pulse Oximetry 96 97 98 Intake/Output Intake/Output: Intake & Output 08/02/19 08/03/19 08/04/19 08/05/19 23:59 23:59 23:59 23:59 Intake Total 720 720 720 120 Balance 720 720 720 120 Meds/Results Medications: Active Medications Generic Name Dose Route Start Last Admin Trade Name Freq PRN Reason Stop Dose Admin Acetaminophen 500 mg 07/22/19 16:32 07/25/19 09:04 Tylenol Tablet PO 500 mg Q4H PRN Administration Pain Rated 4-6 Alprazolam 0.5 mg 07/22/19 16:32 Xanax PO HS PRN Anxiety Aspirin 81 mg 07/23/19 09:00 08/05/19 09:52 Aspirin Ec PO 81 mg DAILY [facility] Administration Atorvastatin Calcium 80 mg 07/22/19 21:00 08/04/19 20:31 Lipitor PO 80 mg HS [facility] Administration Baclofen 20 mg 07/22/19 16:32 07/25/19 09:05 Lioresal Po PO 20 mg TID PRN Administration Muscle Spasm Bisacodyl 10 mg 07/22/19 16:32 07/24/19 13:10 Dulcolax Suppository RECTAL 10 mg DAILY PRN Administration Constipation Clopidogrel Bisulfate 75 mg 07/23/19 09:00 08/05/19 09:52 Plavix PO 75 mg DAILY [facility] Administration Cyclobenzaprine HCl 10 mg 07/31/19 12:29 Flexeril PO TID PRN muscle spasms Lidocaine 2 patch 07/31/19 13:15 Lidoderm TRANSDERM DAILY PRN Pain Lisinopril 20 mg 07/23/19 09:00 08/05/19 09:52 Prinivil PO 20 mg DAILY [facility] Administration Melatonin 3 mg 08/04/19 21:01 08/04/19 21:11 Melatonin PO 3 mg HS PRN Administration Sleep Nitroglycerin 0.4 mg 07/24/19 06:20 Nitrostat Subl 0.4 Mg (1/150) SUBLINGUAL Q5MIN PRN Chest Pain Oxycodone/Acetaminophen 1 tablet 07/31/19 19:04 Percocet 5-325 Mg PO Q8HR PRN Pain Rated 6 or Greater Polyethylene Glycol 17 gm 08/04/19 07:25 Miralax PO PRN PRN Constipation Senna 187 mg 07/23/19 09:00 08/05/19 09:52 Senokot PO 187 mg DAILY [facility] Administration Progress Note: A&P Assessment and Plan (1) Atherosclerotic heart
--- NOTE | 2019-08-09 18:18 | DS_ITS ---
DATE OF DISCHARGE: 08/05/2019 DISCHARGE ACUTE REHAB DIAGNOSIS: Primary rehab impairment category of a stroke with etiological diagnosis of left-sided ischemic stroke. DISCHARGE ACTIVE COMORBID CONDITIONS: 1. Arthritis. 2. Coronary artery disease. 3. Hyperlipidemia. 4. Hypertension. 5. Peripheral vascular disease. 6. Memory dysfunction. 7. Supraventricular tachycardia. REASON FOR ADMISSION: This 74 years old right-handed female with 1. Ongoing history of left-sided ischemic stroke in the past. 2. Hypertension. 3. Hyperlipidemia. Admitted to [facility] on July 12, 2019, with severe spinal stenosis to undergo a C2 to T2 posterior instrumentation, spinal fusion, and C4 to C6 laminectomy and decompression. Postoperatively, she suffered a new left-sided ischemic stroke on July 15, 2019. On July 18, 2019, she underwent cerebral angiogram. There was a finding of critical stenosis with greater than 95% through the carotid due to extensive atherosclerotic disease. Vascular surgeon had evaluated her on July 11, 2019, in the past and was not considering surgical intervention. They were reconsulted. 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 Again, no intervention was done. Pain service was consulted on July 21, 2019, for the back spasm and she was also taken to the OR for bilateral erector spinae pain blocks. She tolerated the procedure well and was not in acute distress subsequently. LEVEL OF FUNCTION AT THE TIME OF ADMISSION: The patient required setup for eating; partial assistance for oral hygiene and toileting; substantial assistance for bathing. She was dependent for upper body and lower body dressing and footwear. She required partial assistance for rolling in bed, sit to lying, lying to sitting; supervision for sit to stand; partial assistance for chair transfer; supervision for toilet transfer. She was unable to car transfer. She required partial assistance for the 10-feet walking, 50-feet walking with 2 turns. She was unable to walk 150 feet, 10 feet on uneven surfaces, curb, or step. She was unable to take 4 steps and 12 steps and she required partial assistance for picking up object and wheelchair for 50 feet and 150 feet. ANTICIPATED REHAB GOALS AT THE TIME OF ADMISSION: Were to make her independent eating, oral hygiene, toileting; required only partial assistance for bathing and upper body dressing; required only setup for lower body dressing, footwear; become independent rolling in bed, sit to lying, lying to sitting, sit to stand, chair transfer, toilet transfer, and required only setup for the car transfer. Again become independent walking 10 feet, 50 feet with 2 turns, 150 feet, walking 10 feet on uneven surfaces, and required setup only for curb or step, 4 steps, 12 steps. Become independent picking up object, wheelchair for 50 and 150 feet. LEVEL OF FUNCTION AT THE TIME OF DISCHARGE: The patient became independent in eating, oral hygiene, toileting; required supervision for bathing, upper body dressing, lower body dressing; became independent for footwear, rolling in bed, sit to lying, lying to sitting, sit to stand, chair transfer, toilet transfer; supervision for car transfer; became independent walking 10 feet, 50 feet with 2 turns, and 150 feet; required supervision for 10 feet on uneven surfaces; became independent for curb or step, 4 steps, 12 steps, and wheelchair 50 feet and 150 feet, but required setup for the picking up object. HOSPITAL COURSE: During the hospitalization, she was involved in the physical therapy and occupational therapy on a regular basis. No other consultants were involved. At the time of discharge, she was walking up to 150 feet independently with a wheeled walker and was able to transfer in and ou
== END 2019-08-05 13:30 | disposition home health service (06) | DRG 57 ==
PROVIDERS: Admitting Provider Psychiatry & Neurology Neurology; Visit Provider Psychiatry & Neurology Neurology
DX: I69.351 Hemiplegia and hemiparesis following cerebral infarction affecting right dominant side (principal); G95.89 Other specified diseases of spinal cord; I47.1 Supraventricular tachycardia; Z47.89 Encounter for other orthopedic aftercare; I69.320 Aphasia following cerebral infarction; I69.311 Memory deficit following cerebral infarction; E78.5 Hyperlipidemia, unspecified; I73.9 Peripheral vascular disease, unspecified; I25.10 Atherosclerotic heart disease of native coronary artery without angina pectoris; I65.22 Occlusion and stenosis of left carotid artery; I10 Essential (primary) hypertension; M19.042 Primary osteoarthritis, left hand; M19.041 Primary osteoarthritis, right hand; M19.072 Primary osteoarthritis, left ankle and foot; M19.071 Primary osteoarthritis, right ankle and foot; Z98.1 Arthrodesis status; R25.2 Cramp and spasm; Z79.82 Long term (current) use of aspirin; Z79.02 Long term (current) use of antithrombotics/antiplatelets
CPT/HCPCS: 36415; 80048; 80061; 85025; 87081; 92507; 92523; 97110; 97116; 97150; 97162; 97530; 97535; 97542; A9270; J1644; L0140